=== PATIENT | male | born 1965 | race Caucasian/White ===

== ENCOUNTER 2017-07-23 14:43 | Emergency (ER) | payer SELFPAY ==
[~2017-07-23] VITALS: Ht 185.4 cm; Wt 73.9 kg
[2017-07-23 15:07] VITALS: BP 149/95
[2017-07-23] MEDS ORDERED: IBUPROFEN600 MG ORAL (15:10)
[2017-07-23] MEDS ORDERED: Norco 5mg/325mg tab ORAL ONE (15:15)
[2017-07-23 15:16] VITALS: BP 149/95
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
== END 2017-07-23 15:18 | disposition home or self-care (01) ==
LOC: EMR 15:08
DX: R51 Headache (principal)
CPT/HCPCS: 99283